=== PATIENT | female | born 1960 | race Native Hawaiian/Other Pacific Islander ===

== ENCOUNTER 2019-06-01 13:58 | Emergency (ER) | payer BC ==
[~2019-06-01] VITALS: Ht 157.5 cm; Wt 52.2 kg
[2019-06-01 14:00] VITALS: TEMP 97.5
[2019-06-01 15:20] LABS: PLATELET COUNT 256 K/uL (152-353)
[2019-06-01 15:22] LABS: POTASSIUM 3.9 mmol/L (3.6-5.2)
[2019-06-01 17:01] VITALS: BP 141/78
== END 2019-06-01 17:02 | disposition home or self-care (01) ==
LOC: ED 13:58
PROVIDERS: Family Medicine
DX: F41.0 Panic disorder [episodic paroxysmal anxiety] (principal); R06.4 Hyperventilation
CPT/HCPCS: 80053; 81000; 85027; 99283